=== PATIENT | female | born 1940 | race Caucasian/White ===

== ENCOUNTER 2016-07-12 12:49 | Outpatient (CLI) | payer MEDICARE, OTHER ==
--- NOTE | 2016-07-14 13:41 | HISTORY AND PHYSICAL REPORT ---
REFERRING PHYSICIANS: Dr. Neva Gramajo Dear Dr. Gramajo: HISTORY OF PRESENT ILLNESS: I had the opportunity of seeing Kristen Jimenes today as an outpatient at [facility]. Kristen is a very nice 76-year-old white female who presents today with a chief complaint of right cervicalgia and neck pain and pain at the post occiput and radiates into the anterior/superior portion of the shoulder over the trapezius. She also complains of some back pain, right-sided knee pain, and left foot pain and it seems that the 2 most bothersome conditions are the right-sided neck and left great 2nd toe. She has a great deal of stiffness in her neck and immobility. She says she cannot turn her head while she is driving and is associated with a great deal of stiffness. She denies symptoms of neurogenic claudication or radiculitis. She denies incontinence of bowel or bladder or any symptoms of long tract signs or stenosis. She has had x-rays performed. She has not had MRIs at this point. She was seeing Dr. Joe Carlos for adjustment for which she gets short-term relief. Her other chief complaint is her left foot. She has been seen by 2 or 3 podiatrists. She has a bunion on the left foot and is having pain between the 1st and 2nd toes which many times can radiate into the area of the anterior tarsal tunnel. It is worse with activity and worse with standing and walking. She does notice rest pain as well. She says the back and knee pain are intermittent. She says the back and knee pain are intermittent. She has really not been on a lot of medication but she has been on Voltaren topical and a compound cream from the [facility] and it has not improved her condition. She has also had physical therapy and chiropractic manipulation and home exercises as noted above. She takes Naproxen which does seem to help. She was just prescribed a muscle relaxer without a great deal of improvement. She rates the pain as severe. It is 7 over 10 on the visual analog scale and never better than 1 to 2 over 10 on the visual analog scale. PAST MEDICAL HISTORY: 1. History of cervical, uterine, and breast cancer. 2. History of a CVA. 3. Osteoarthritis. PAST SURGICAL HISTORY: 1. Cervical and uterine cancer removed. 2. Right mastectomy plus lymph node. CURRENT DAILY MEDICATIONS: 1. Ibuprofen 200 mg p.r.n. 2. Ambien 5 mg half tablet at bedtime, p.r.n. 3. Aspirin 81 mg daily. 4. Multivitamin daily. 5. Zinc daily. 6. Fish oil daily. 7. Vitamin D 1000 units daily. ALLERGIES: She has no known drug allergies. SOCIAL HISTORY: She has never used tobacco, alcohol, or recreational drugs. She has been a since 2005. She has 2 children. She lives at home alone. She completed high school. She is currently employed. Her occupation is a cook at [employer]. She is not currently disabled. FAMILY HISTORY: Father with diabetes. REVIEW OF SYSTEMS: In the last month or so, she has had no complaints. Pain is worsened with standing, stress, and fatigue and gradually gets worse as the day progresses, and getting up in the morning. Pain is improved with lying down and heat. PHYSICAL EXAMINATION: General: This is a 76-year-old thin white female in no apparent distress. Vital Signs: Height: 66 inches. Weight: 56 kilograms. BP: 117/76, P: 79, R : 16, T: 97.8, oxygen saturation is 99% on room air. HEENT: Pupils are equal, round, and reactive to light and accommodation. Extraocular movements intact. No facial droop. Neck: There is full range of motion of the cervical spine. No evidence of adenopathy. Thyroid is nontender, no enlarged. Carotids are without bruits. Chest: Clear to auscultation bilaterally. Normal. Chest excursion. Heart: Regular rate and rhythm without murmur. Abdomen: Benign. Normoactive bowel sounds. Motor/sensory: Intact in the upper and lower extremities. Moves all extremities freely. Musculoskeletal: There is markedly limited range of motion of the cervical spine. There is reproducible pain and tenderness over the right portion of the neck. Agronomy Professor strength is 5/5 and equal in the upper extremities. Flexor compartment and extensor compartment are intact. Agronomy Professor strength is intact. Biceps tendon and triceps tendon are 2+ and equal. As far as the lower extremities, strength is 5/5 and equal. She has a prominent bunion on the left great toe. There is pain between the 1st and 2nd digits consistent with either metatarsalgia or Castillo's neuroma. I do not detect tarsal tunnel entrapment. ASSESSMENT: 1. Cervical arthritis and spondylosis. 2. Right-sided facet pain for which I have recommended a trial of C3 through C6 facet medial branch blocks with IV sedation and when she has a taxi truck driver. 3. Right-sided bunion and metatarsalgia. I recommended she follow up with Dr. Newton or I could place an intermetatarsal injection for metatarsalgia or neuroma. PLAN: For today, as she does not have a taxi truck driver, I am going to start her on meloxicam and have her follow up at my next clinic for possible facet medial branch blocks of C3 through C6 on the right side with IV sedation. She is in agreement. I will follow her up in the near future. Dr. Gramajo, thank you very much for allowing me to take part in the care of this nice lady. I appreciate the opportunity to take part in the care of your patients. cc: Dr. Neva SALAS
== END 2016-07-12 12:50 ==
LOC: OUT 12:49
PROVIDERS: ATTEND Anesthesiology Pain Medicine
DX: M47.812 Spondylosis without myelopathy or radiculopathy, cervical region (principal); M21.611 Bunion of right foot; M77.41 Metatarsalgia, right foot
CPT/HCPCS: 99203; G0463